=== PATIENT | male | born 1970 | race Hispanic/Latino ===

== ENCOUNTER → 2020-02-19 | Outpatient (CLI) | payer SELFPAY ==
--- NOTE | 2020-02-19 11:33 | Diagnostic Imaging Report ---
Skull series, 3 views Clinical indication: Check for metal in eye for MRI Comparison: None Findings: 3 radiographs of the skull were obtained. No radiopaque foreign bodies are identified. Impression: No radiopaque foreign bodies identified. Signed by: Julio César Calderon MD on 02/19/2020 11:29 AM
== END ==
LOC: MRI 10:10
PROVIDERS: ATTEND Family Medicine
DX: T15.91XA Foreign body on external eye, part unspecified, right eye, initial encounter (principal)
CPT/HCPCS: 70250

== ENCOUNTER → 2020-02-20 | Outpatient (CLI) | payer SELFPAY ==
--- NOTE | 2020-02-20 13:51 | Diagnostic Imaging Report ---
EXAM: CT left elbow WITHOUT contrast INDICATION: Elbow pain. Lateral epicondylitis. Decreased range of motion. Pain not responding to conservative management COMPARISON: None. TECHNIQUE: Left elbow was scanned utilizing a multidetector helical scanner without administration of IV contrast. Coronal and sagittal reformations were obtained. Routine protocol was performed. IV CONTRAST: None ORAL CONTRAST: Water COMPLICATIONS: None RADIATION DOSE: Total DLP: 258 mGy*cm Estimated effective dose: (DLP x 0.015 x size factor) mSv CTDIvol has been reviewed. It is below the limits set by the Radiation Protocol Committee (RPC). Dose modulation, iterative reconstruction, and/or weight based adjustment of the mA/kV was utilized to reduce the radiation dose to as low as reasonably achievable. FINDINGS: No acute fracture, subluxation or avascular necrosis. No osseous erosion. 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 Mild sclerosis along the cortex of the lateral humeral condyle best seen on axial series 10 image 42, coronal reformatted image 28 and sagittal image 38 through 40. This could be due to mild lateral epicondylitis. There is minimal adjacent soft tissue edema. Punctate nonspecific calcification in the soft tissues along the shaft of the proximal radius posteriorly best seen on coronal reformatted image 26. No radiopaque foreign body. Small posterior olecranon bone spur best seen on sagittal reformatted image 24. Physiologic amount of fluid in the elbow joint. The visualized muscles are normal in size and morphology. IMPRESSION: 1. Mild sclerosis along the cortex of the lateral humeral condyle best seen on axial series 10 image 42, coronal reformatted image 28 and sagittal image 38 through 40. This could be due to mild lateral epicondylitis. There is minimal adjacent soft tissue edema. Signed by: Dr. Jaylen Wood M.D. on 02/20/2020 1:47 PM
== END ==
LOC: CT 12:21
PROVIDERS: ATTEND Family Medicine
DX: M77.12 Lateral epicondylitis, left elbow (principal)